=== PATIENT | female | born 1955 | race Caucasian/White ===

== ENCOUNTER 2022-11-18 15:08 | Emergency (ER) | payer MEDICARE, SELFPAY ==
[2022-11-18 15:14] VITALS: BP 149/83; PULSE 100; RESP 16; TEMP 36.4; O2SAT 97; BMI 35.4
--- NOTE | 2022-11-18 15:24 | DI.RAD.S_ITS ---
PROCEDURE: XR KNEE RT 3V INDICATIONS: fall TECHNIQUE: 3 views of the knee were acquired. COMPARISON: None. FINDINGS: Bones: No fractures or dislocations. No suspicious bony lesions. Soft tissues: No joint effusion. No suspicious soft tissue calcifications. Moderate soft tissue swelling over the anterior knee at the level of patella. IMPRESSION: Prepatellar soft tissue edema possibly representing prepatellar bursitis. Otherwise, no fracture or dislocation. If there is persistent clinical concern for occult fracture given adequate mechanism of injury, consider repeat imaging in 10-14 days. Dictated by: Bruce Tomas M.D. on 11/18/2022 at 14:59 Approved by: Bruce Tomas M.D. on 11/18/2022 at 15:01
--- NOTE | 2022-11-18 20:52 | PC.NURSE ---
Called patient at 2018 to come back to a room, patient not present in the [facility].
== END 2022-11-18 20:51 | disposition left against medical advice (07) ==
PROVIDERS: Emergency Provider Emergency Medicine
DX: S89.91XA Unspecified injury of right lower leg, initial encounter (principal); R51.9 Headache, unspecified; W18.30XA Fall on same level, unspecified, initial encounter
CPT/HCPCS: 73562; 99283